=== PATIENT | male | born 1990 | race Two or more races ===

== ENCOUNTER 2022-06-25 17:16 | Emergency (ER) | payer OTHER ==
[~2022-06-25] VITALS: Ht 180.3 cm; Wt 83.9 kg
[2022-06-25 17:59] VITALS: BP 107/72
[2022-06-25] MEDS ORDERED: IBUP-1953 PO (20:18)
--- NOTE | 2022-06-25 20:38 | NUR ---
Patient discharged to home in stable condition. Written and verbal after care instructions given. Patient verbalizes understanding of instruction.
== END 2022-06-25 20:38 | disposition home or self-care (01) ==
LOC: ER 17:35
DX: S06.0XAA Concussion with loss of consciousness status unknown, initial encounter (principal); R51.9 Headache, unspecified; W31.89XA Contact with other specified machinery, initial encounter; Y93.89 Activity, other specified; Y92.89 Other specified places as the place of occurrence of the external cause; Y99.8 Other external cause status
CPT/HCPCS: 99284; 70450; J7030; A4223